=== PATIENT | female | born 1960 | race American Indian/Alaskan Native ===

== ENCOUNTER 2018-12-23 13:56 | Outpatient (CLI) | payer MEDICARE | END 2018-12-23 13:57 | disposition home or self-care (01) | LOC: LAB 13:56 | PROVIDERS: ATTEND Specialist | DX: G45.9 Transient cerebral ischemic attack, unspecified (principal); F17.200 Nicotine dependence, unspecified, uncomplicated; E78.00 Pure hypercholesterolemia, unspecified; I10 Essential (primary) hypertension | CPT/HCPCS: 36415; 84436; 84443; 84479; 84480 ==

== ENCOUNTER 2019-05-12 13:28 | Inpatient (IN) | payer MEDICARE, OTHER ==
[2019-05-12 13:57] LABS: Basophils % (Auto) 0.6 % (0.0-1.8); Eosinophils # (Auto) 0.1 K/mm3 (0.0-0.4); Eosinophils % (Auto) 2.4 % (0.0-4.3); Hematocrit 37.1 % (30.3-42.9); Hemoglobin 12.5 gm/dl (10.1-14.3); Lymphocytes # (Auto) 2.4 K/mm3 (1.2-5.4); Lymphocytes % (Auto) 49.7 % (13.4-35.0); Mean Corpuscular HGB Conc 34 % (30-34); Mean Corpuscular Volume 87 fl (79-97); Monocytes # (Auto) 0.4 K/mm3 (0.0-0.8); Monocytes % (Auto) 8.7 % (0.0-7.3); Platelet Count 359 K/mm3 (140-440); Red Blood Count 4.26 M/mm3 (3.65-5.03); Red Cell Distribution Width 13.2 % (13.2-15.2)
--- NOTE | 2019-05-12 13:58 | Cat Scan Report ---
PROCEDURE: CT HEAD/BRAIN WO CON TECHNIQUE: Computerized tomography of the head was performed without contrast material. CT DOSE LENGTH PRODUCT: 1453.81 mGy-cm. HISTORY: neuro deficits <6hrs or sx present upon awakening COMPARISONS: CT head November 29, 2018. FINDINGS: Chronic encephalomalacia in the right frontal periventricular white matter, right frontal lobe, and b oth parietal regions. There is no evidence for acute ischemia. There is no hemorrhage. There is no midline shift. There is no hydrocephalus. There is no mass. Age appropriate mendoza-white matter attenuation is noted. There is no calvarial fracture. The temporal bones demonstrate aerated mastoid air cells. The middle ears appear unremarkable. Paranasal sinuses are unremarkable. Bilateral proptosis. Globes are otherwise unremarkable. IMPRESSION: * No acute intracranial findings. * Chronic ischemic disease. * Bilateral proptosis. This document is electronically signed by Mauri Mcginnis MD., May 12 2019 01:55:34 PM ET
[2019-05-12] MEDS ORDERED: NORMODYNE IV ONE (14:03)
[2019-05-12] MEDS ORDERED: BABY ASPIRIN PO ONE (14:03)
--- NOTE | 2019-05-12 14:05 | Emergency Department Report ---
ED Neuro Deficit HPI - General Chief Complaint: Neuro Symptoms/Deficit Stated Complaint: SOB,DIZZY Time Seen by Provider: 05/12/19 13:38 Source: patient Mode of arrival: Ambulatory Limitations: No Limitations - History of Present Illness Initial Comments: Mrs. Mcclelland is a 59-year-old female with history of CVA, hypertension, tobacco abuse, dyslipidemia who presents with abnormal speech, face "locking up". She has persistent numbness and numbness on the left side from previous CVA. However the numbness is more prominent with new decreased sensation in the facial region. Symptoms occurred last night. Symptoms then recurred this morning at 11 AM. noticed that she had trouble getting her words out. Further CVA TIA episode occurred 2014. She was admitted recently in November 2018. MRI of the brain obtained November 2018 revealed multiple chronic focal infarcts. -: Last night, This morning Location: speech, left face Presenting Symptoms: Present: Unable to Speak Clearly Place: home Severity: mild Quality: numb Improves With: time On Anticoagulants: No Context: sudden onset - Related Data Home Medications: Home Medications Medication Instructions Recorded Confirmed Last Taken Lisinopril [Zestril TAB] 5 mg PO QDAY 06/05/15 11/30/18 06/05/15 Ibuprofen [Motrin] 800 mg PO Q8HR PRN 05/12/19 05/12/19 Unknown Simvastatin 20 mg PO QHS 05/12/19 05/12/19 Unknown amLODIPine [Norvasc] 10 mg PO QDAY 05/12/19 05/12/19 Unknown Previous Rx's Medication Instructions Recorded Last Taken Type Aspirin 325 mg PO QDAY #30 tablet 06/08/15 1 Day Ago Rx ~11/29/18 Allergies/Adverse Reactions: Allergies Allergy/AdvReac Type Severity Reaction Status Date / Time No Known Allergies Allergy Verified 11/29/18 14:11 ED Review of Systems ROS: Stated complaint: SOB,DIZZY Other details as noted in HPI Comment: All other systems reviewed and negative Constitutional: denies: malaise Respiratory: denies: cough Cardiovascular: denies: chest pain ED Past Medical Hx - Past Medical History Previous Medical History?: Yes Hx Hypertension: Yes Hx CVA: Yes (x7) Hx Congestive Heart Failure: No Hx Diabetes: No Hx Asthma: No Hx COPD: No - Family History Family history: hypertension - Social History Smoking Status: Current Every Day Smoker - Medications Home Medications: Home Medications Medication Instructions Recorded Confirmed Last Taken Type Lisinopril [Zestril TAB] 5 mg PO QDAY 06/05/15 11/30/18 06/05/15 History Aspirin 325 mg PO QDAY #30 tablet 06/08/15 11/30/18 1 Day Ago Rx ~11/29/18 Ibuprofen [Motrin] 800 mg PO Q8HR PRN 05/12/19 05/12/19 Unknown History Simvastatin 20 mg PO QHS 05/12/19 05/12/19 Unknown History amLODIPine [Norvasc] 10 mg PO QDAY 05/12/19 05/12/19 Unknown History ED Neuro Physical Exam - General Limitations: No Limitations General appearance: alert, in no apparent distress, other (tearful obviously upset) Suspected Stroke: Yes - Head Head exam: Present: atraumatic, normocephalic - Eye Eye exam: Present: normal appearance - ENT ENT exam: Present: mucous membranes moist - Neck Neck exam: Present: normal inspection, full ROM - Respiratory Respiratory exam: Present: normal lung sounds bilaterally. Absent: respiratory distress, wheezes, rales, rhonchi - Cardiovascular Cardiovascular Exam: Present: regular rate, normal rhythm, normal heart sounds. Absent: systolic murmur, diastolic murmur, rubs, gallop - GI/Abdominal GI/Abdominal exam: Present: soft, normal bowel sounds. Absent: distended, tenderness, guarding, rebound - Extremities Exam Extremities exam: Present: normal inspection - Back Exam Back exam: Present: normal inspection - Neurological Exam Neurological exam: Present: alert, oriented X3 - NIHSS Assessment Interval: Baseline 1a. Level of Consciousness: alert/keenly responsive 1b. LOC Questions: answers both correctly 1c. LOC Commands: performs tasks correctly 2. Best Gaze: normal 3. Visual: no visual loss 4. Facial Palsy: normal symmetrical movement 5b. Motor Arm Right: no drift 5a. Motor Arm Left: no drift 6a. Motor Leg Left: drift 6b. Motor Leg Right: no drift 7. Limb Ataxia: absent 8. Sensory: mild/moderate sensory loss 9. Best Language: mild/moderate aphasia 10. Dysarthria: mild/moderate dysarthria 11. Extinction/Inattention: no abnormality Total Score: 4 Stroke Severity: Minor Stroke - Psychiatric Psychiatric exam: Present: normal affect, normal mood - Skin Skin exam: Present: warm, dry, intact, normal color. Absent: rash ED Course Vital Signs 05/12/19 05/12/19 13:35 14:23 Temperature 98.3 F Pulse Rate 117 H Respiratory 20 Rate Blood Pressure 202/117 [Left] O2 Sat by Pulse 100 Oximetry - Lab Data Result diagrams: 05/12/19 13:48 05/12/19 13:48 Lab Results 05/12/19 05/12/19 05/12/19 Range/Units 13:38 13:48 13:48 WBC 4.9 (4.5-11.0) K/mm3 RBC 4.26 (3.65-5.03) M/mm3 Hgb 12.5 (10.1-14.3) gm/dl Hct 37.1 (30.3-42.9) % MCV 87 (79-97) fl MCH 29 (28-32) pg MCHC 34 (30-34) % RDW 13.2 (13.2-15.2) % Plt Count 359 (140-440) K/mm3 Lymph % (Auto) 49.7 H (13.4-35.0) % [place] % (Auto) 8.7 H (0.0-7.3) % Eos % (Auto) 2.4 (0.0-4.3) % Baso % (Auto) 0.6 (0.0-1.8) % Lymph # 2.4 (1.2-5.4) K/mm3 [place] # 0.4 (0.0-0.8) K/mm3 Eos # 0.1 (0.0-0.4) K/mm3 Baso # 0.0 (0.0-0.1) K/mm3 Seg Neutrophils % 38.6 L (40.0-70.0) % Seg Neutrophils # 1.9 (1.8-7.7) K/mm3 PT 13.0 (12.2-14.9) Sec. INR 1.01 (0.87-1.13) APTT 39.0 H (24.2-36.6) Sec. Thrombin Time 15.3 (15.1-19.6) Sec. Sodium (137-145) mmol/L Potassium (3.6-5.0) mmol/L Chloride (98-107) mmol/L Carbon Dioxide (22-30) mmol/L Anion Gap mmol/L BUN (7-17) mg/dL Creatinine (0.7-1.2) mg/dL Estimated GFR ml/min BUN/Creatinine Ratio % Glucose (65-100) mg/dL POC Glucose 108 H (70-105) Calcium (8.4-10.2) mg/dL Troponin T (0.00-0.029) ng/mL 05/12/19 Range/Units 13:48 WBC (4.5-11.0) K/mm3 RBC (3.65-5.03) M/mm3 Hgb (10.1-14.3) gm/dl Hct (30.3-42.9) % MCV (79-97) fl MCH (28-32) pg MCHC (30-34) % RDW (13.2-15.2) % Plt Count (140-440) K/mm3 Lymph % (Auto) (13.4-35.0) % [place] % (Auto) (0.0-7.3) % Eos % (Auto) (0.0-4.3) % Baso % (Auto) (0.0-1.8) % Lymph # (1.2-5.4) K/mm3 [place] # (0.0-0.8) K/mm3 Eos # (0.0-0.4) K/mm3 Baso # (0.0-0.1) K/mm3 Seg Neutrophils % (40.0-70.0) % Seg Neutrophils # (1.8-7.7) K/mm3 PT (12.2-14.9) Sec. INR (0.87-1.13) APTT (24.2-36.6) Sec. Thrombin Time (15.1-19.6) Sec. Sodium 141 (137-145) mmol/L Potassium 3.9 (3.6-5.0) mmol/L Chloride 104.4 (98-107) mmol/L Carbon Dioxide 23 (22-30) mmol/L Anion Gap 18 mmol/L BUN 10 (7-17) mg/dL Creatinine 0.7 (0.7-1.2) mg/dL Estimated GFR > 60 ml/min BUN/Creatinine Ratio 14 % Glucose 111 H (65-100) mg/dL POC Glucose (70-105) Calcium 9.2 (8.4-10.2) mg/dL Troponin T < 0.010 (0.00-0.029) ng/mL 05/12/19 14:16 EKG obtained 1412 Normal sinus rhythm rate 90 beats a minute normal axis prolonged QT interval no ST elevation - Radiology Data Radiology results: report reviewed, image reviewed interpreted by me: AP portable chest: No acute process according to my radiology interpretation CT head without acute process according to radiology report - Medical Decision Making Mrs. Mcclelland presents with left sided weakness, aphasia and left sided numbness. Due to improving symptoms, I and teleneurologist agree that TPA nor advanced imaging are indicated at this time. Dr. Schilling, teleneurologist, recommended admission for further evaluation. ASA provided in ED Labetalol IV given to manage elevated blood pressure Dr. Schilling recommended IV Keppra for possible focal seizure of the face. - Thrombolytic Inclusion/Exclusion Thrombolytic Contraindications: Rapidily Improving s/s Critical care attestation.: If time is entered above; I have spent that time in minutes in the direct care of this critically ill patient, excluding procedure time. ED Disposition Clinical Impression: CVA (cerebral infarction), Tobacco abuse, TIA (transient ischemic attack), Expressive aphasia, Focal seizure Disposition: DC-09 OP ADMIT IP TO THIS HOSP Is pt being admited?: Yes Does the pt Need Aspirin: No Condition: Stable Instructions: Hypertension (ED)
[2019-05-12 14:09] LABS: BUN/Creatinine Ratio 14; Blood Urea Nitrogen 10 mg/dL (7-17); Calcium 9.2 mg/dL (8.4-10.2); Hemolysis Index 3
[2019-05-12 14:29] LABS: INR 1.01 (0.87-1.13)
[2019-05-12 14:30] LABS: Thrombin Time 15.3 Sec. (15.1-19.6)
[2019-05-12] MEDS ORDERED: KEPPRA 1,000 MG/NS 0.75% 100ML 1,000 MG/100 ML BAG IV ONE (14:32)
--- NOTE | 2019-05-12 14:47 | Emergency Department Report ---
ED Neuro Deficit HPI - General Chief Complaint: Neuro Symptoms/Deficit Stated Complaint: SOB,DIZZY Time Seen by Provider: 05/12/19 13:38 Source: patient Mode of arrival: Ambulatory Limitations: No Limitations - History of Present Illness Initial Comments: [facility] Impression: stroke v seizure. Admits to left facial numbness, which is new. She is also concerned with left facial spasms. Suspect the spasms are m/l focal seizures. If she indeed has new left facial weakness since yesterday, this could also be a new stroke Not a tpa candidate due to: out of therapeutic window, mild non disabling symptoms Does not meet LVO screening criteria (no aphasia, neglect, gaze deviation, dense hemiparesis, visual field deficits on exam); therefore, advanced imaging not recommended. Differential Diagnosis: 1. Cardioembolic stroke 2. Small vessel disease/lacune 3. Thromboembolic, [id number] mechanism 4. Hypercoagulable state-related infarct 5. Transient ischemic attack 6. Thrombotic mechanism, large artery disease Comments: [facility] contacted: [phone] [facility] at bedside: [phone] Recommendations: Activate Stroke protocol admission/order set Keppra 1g iv now Stroke/telemetry floor Neuro checks Bedside swallow eval Dvt prophylaxis IV fluids, normal saline ASA if no contraindications Head of bed below 30 degrees Euglycemia and avoid hyperthermia (prn acetaminophen) inpatient neurology consultation Inpatient stroke evaluation as per Neurology/ Internal Medicine Discussed with ED MD CC left facial numbness, left facial twtching History of Present Illness Patient is a 59 year old woman who comes to the hospital for new left facial numbness and left facial twitching. This has been on going since yesterday in the morning. Today she woke up with the same symptoms and decided to come to the hospital. History of previous strokes, last one in November 2018. She ahs re sidual left sided numbness and mild weakness Diagnostic: Ct head without contrast: bi hemispheric- encephalomalacia- cortical- parietal Exam: NIHSS score: 1 1A: Level of Consciousness - Alert; keenly responsive 1B: Ask Month and Age - Both Questions Right 1C: 'Blink Eyes' & 'Squeeze Hands' - Performs Both Tasks 2: Test Horizontal Extraocular Movements - Normal 3: Test Visual [place] - No Visual Loss 4: Test Facial Palsy - Normal symmetry 5A: Test Left Arm Motor Drift - No Drift for 10 Seconds 5B: Test Right Arm Motor Drift - No Drift for 10 Seconds 6A: Test Left Leg Motor Drift - No Drift for 5 Seconds 6B: Test Right Leg Motor Drift - No Drift for 5 Seconds 7: Test Limb Ataxia - No Ataxia 8: Test Sensation - Mild-Moderate Loss: Less Sharp/More Dull 9: Test Language/Aphasia - Normal; No aphasia 10: Test Dysarthria - Normal 11: Test Extinction/Inattention - No abnormality Medical Decision Making: - Extensive number of diagnosis or management options are considered above. - Extensive amount of complex data reviewed. - High risk of complication and/or morbidity or mortality are associated with differential diagnostic considerations above. - There may be Uncertain outcome and increased probability of prolonged functional impairment or high probability of severe prolonged functional impairment associated with some of these differential diagnosis. Medical Data Reviewed: 1.Data reviewed include clinical labs, radiology, Medical Tests; 2.Tests results discussed w/performing or interpreting physician; 3.Obtaining/reviewing old medical records; 4.Obtaining case history from another source; 5.Independent review of image, tracing or specimen. Patient was informed the Neurology Consult would happen via telehealth (remote video) and consented to receiving care in this manner. Location: speech, left face Place: home Severity: mild Quality: numb Improves With: time On Anticoagulants: No - Related Data Home Medications: Home Medications Medication Instructions Recorded Confirmed Last Taken Lisinopril [Zestril TAB] 20 mg PO QDAY 06/05/15 05/12/19 06/05/15 Ibuprofen [Motrin] 800 mg PO Q8HR PRN 05/12/19 05/12/19 Unknown Simvastatin 20 mg PO QHS 05/12/19 05/12/19 Unknown amLODIPine [Norvasc] 10 mg PO QDAY 05/12/19 05/12/19 Unknown Previous Rx's Medication Instructions Recorded Last Taken Type Aspirin 325 mg PO QDAY #30 tablet 06/08/15 1 Day Ago Rx ~11/29/18 Allergies/Adverse Reactions: Allergies Allergy/AdvReac Type Severity Reaction Status Date / Time No Known Allergies Allergy Verified 11/29/18 14:11 ED Review of Systems ROS: Stated complaint: SOB,DIZZY Other details as noted in HPI Constitutional: denies: malaise Respiratory: denies: cough Cardiovascular: denies: chest pain ED Past Medical Hx - Past Medical History Previous Medical History?: Yes Hx Hypertension: Yes Hx CVA: Yes (x7) Hx Congestive Heart Failure: No Hx Diabetes: No Hx Asthma: No Hx COPD: No - Social History Smoking Status: Current Every Day Smoker - Medications Home Medications: Home Medications Medication Instructions Recorded Confirmed Last Taken Type Lisinopril [Zestril TAB] 20 mg PO QDAY 06/05/15 05/12/19 06/05/15 History Aspirin 325 mg PO QDAY #30 tablet 06/08/15 05/12/19 1 Day Ago Rx ~11/29/18 Ibuprofen [Motrin] 800 mg PO Q8HR PRN 05/12/19 05/12/19 Unknown History Simvastatin 20 mg PO QHS 05/12/19 05/12/19 Unknown History amLODIPine [Norvasc] 10 mg PO QDAY 05/12/19 05/12/19 Unknown History ED Neuro Physical Exam - General Limitations: No Limitations General appearance: alert, in no apparent distress, other (tearful obviously upset) Suspected Stroke: Yes - NIHSS Assessment Interval: Baseline 1a. Level of Consciousness: alert/keenly responsive 1b. LOC Questions: answers both correctly 1c. LOC Commands: performs tasks correctly 2. Best Gaze: normal 3. Visual: no visual loss 4. Facial Palsy: normal symmetrical movement 5b. Motor Arm Right: no drift 5a. Motor Arm Left: no drift 6a. Motor Leg Left: no drift 6b. Motor Leg Right: no drift 7. Limb Ataxia: absent 8. Sensory: mild/moderate sensory loss 9. Best Language: no aphasia 10. Dysarthria: normal 11. Extinction/Inattention: no abnormality Total Score: 1 Stroke Severity: Minor Stroke ED Course Vital Signs 05/12/19 05/12/19 13:35 14:23 Temperature 98.3 F Pulse Rate 117 H Respiratory 20 Rate Blood Pressure 202/117 [Left] O2 Sat by Pulse 100 Oximetry - Lab Data Result diagrams: 05/12/19 13:48 05/12/19 13:48 Lab Results 05/12/19 05/12/19 05/12/19 Range/Units 13:38 13:48 13:48 WBC 4.9 (4.5-11.0) K/mm3 RBC 4.26 (3.65-5.03) M/mm3 Hgb 12.5 (10.1-14.3) gm/dl Hct 37.1 (30.3-42.9) % MCV 87 (79-97) fl MCH 29 (28-32) pg MCHC 34 (30-34) % RDW 13.2 (13.2-15.2) % Plt Count 359 (140-440) K/mm3 Lymph % (Auto) 49.7 H (13.4-35.0) % [place] % (Auto) 8.7 H (0.0-7.3) % Eos % (Auto) 2.4 (0.0-4.3) % Baso % (Auto) 0.6 (0.0-1.8) % Lymph # 2.4 (1.2-5.4) K/mm3 [place] # 0.4 (0.0-0.8) K/mm3 Eos # 0.1 (0.0-0.4) K/mm3 Baso # 0.0 (0.0-0.1) K/mm3 Seg Neutrophils % 38.6 L (40.0-70.0) % Seg Neutrophils # 1.9 (1.8-7.7) K/mm3 PT 13.0 (12.2-14.9) Sec. INR 1.01 (0.87-1.13) APTT 39.0 H (24.2-36.6) Sec. Thrombin Time 15.3 (15.1-19.6) Sec. Sodium (137-145) mmol/L Potassium (3.6-5.0) mmol/L Chloride (98-107) mmol/L Carbon Dioxide (22-30) mmol/L Anion Gap mmol/L BUN (7-17) mg/dL Creatinine (0.7-1.2) mg/dL Estimated GFR ml/min BUN/Creatinine Ratio % Glucose (65-100) mg/dL POC Glucose 108 H (70-105) Calcium (8.4-10.2) mg/dL Troponin T (0.00-0.029) ng/mL 05/12/19 Range/Units 13:48 WBC (4.5-11.0) K/mm3 RBC (3.65-5.03) M/mm3 Hgb (10.1-14.3) gm/dl Hct (30.3-42.9) % MCV (79-97) fl MCH (28-32) pg MCHC (30-34) % RDW (13.2-15.2) % Plt Count (140-440) K/mm3 Lymph % (Auto) (13.4-35.0) % [place] % (Auto) (0.0-7.3) % Eos % (Auto) (0.0-4.3) % Baso % (Auto) (0.0-1.8) % Lymph # (1.2-5.4) K/mm3 [place] # (0.0-0.8) K/mm3 Eos # (0.0-0.4) K/mm3 Baso # (0.0-0.1) K/mm3 Seg Neutrophils % (40.0-70.0) % Seg Neutrophils # (1.8-7.7) K/mm3 PT (12.2-14.9) Sec. INR (0.87-1.13) APTT (24.2-36.6) Sec. Thrombin Time (15.1-19.6) Sec. Sodium 141 (137-145) mmol/L Potassium 3.9 (3.6-5.0) mmol/L Chloride 104.4 (98-107) mmol/L Carbon Dioxide 23 (22-30) mmol/L Anion Gap 18 mmol/L BUN 10 (7-17) mg/dL Creatinine 0.7 (0.7-1.2) mg/dL Estimated GFR > 60 ml/min BUN/Creatinine Ratio 14 % Glucose 111 H (65-100) mg/dL POC Glucose (70-105) Calcium 9.2 (8.4-10.2) mg/dL Troponin T < 0.010 (0.00-0.029) ng/mL Critical care attestation.: If time is entered above; I have spent that time in minutes in the direct care of this critically ill patient, excluding procedure time. ED Disposition Clinical Impression: CVA (cerebral infarction) Disposition: DC-09 OP ADMIT IP TO THIS HOSP Is pt being admited?: Yes Condition: Stable Instructions: Hypertension (ED)
--- NOTE | 2019-05-12 15:13 | XRay Report ---
AP CHEST: HISTORY: Dyspnea AP view of the chest demonstrates a normal mediastinal and cardiac contour with clear lungs and normal bony and soft tissue structures. IMPRESSION: Unremarkable AP chest.
[2019-05-12] MEDS ORDERED: IBUPROFEN PO PRN (21:14)
--- NOTE | 2019-05-12 21:14 | History and Physical Report ---
History of Present Illness Date of examination: 05/12/19 Date of admission: 05/12/19 14:06 Medications and Allergies Allergies Allergy/AdvReac Type Severity Reaction Status Date / Time No Known Allergies Allergy Verified 11/29/18 14:11 Home Medications Medication Instructions Recorded Confirmed Last Taken Type Lisinopril [Zestril TAB] 20 mg PO QDAY 06/05/15 05/12/19 06/05/15 History Aspirin 325 mg PO QDAY #30 tablet 06/08/15 05/12/19 1 Day Ago Rx ~11/29/18 Ibuprofen [Motrin] 800 mg PO Q8HR PRN 05/12/19 05/12/19 Unknown History Simvastatin 20 mg PO QHS 05/12/19 05/12/19 Unknown History amLODIPine [Norvasc] 10 mg PO QDAY 05/12/19 05/12/19 Unknown History Exam - Constitutional Vitals: Temp Pulse Resp BP Pulse Ox 98.3 F 92 H 17 164/90 100 05/12/19 20:12 05/12/19 20:12 05/12/19 20:12 05/12/19 20:12 05/12/19 20:12 Results - Labs CBC & Chem 7: 05/12/19 13:48 05/12/19 13:48 Labs: Laboratory Last Values WBC 4.9 K/mm3 (4.5-11.0) 05/12/19 13:48 RBC 4.26 M/mm3 (3.65-5.03) 05/12/19 13:48 Hgb 12.5 gm/dl (10.1-14.3) 05/12/19 13:48 Hct 37.1 % (30.3-42.9) 05/12/19 13:48 MCV 87 fl (79-97) 05/12/19 13:48 MCH 29 pg (28-32) 05/12/19 13:48 MCHC 34 % (30-34) 05/12/19 13:48 RDW 13.2 % (13.2-15.2) 05/12/19 13:48 Plt Count 359 K/mm3 (140-440) 05/12/19 13:48 Lymph % (Auto) 49.7 % (13.4-35.0) H 05/12/19 13:48 [place] % (Auto) 8.7 % (0.0-7.3) H 05/12/19 13:48 Eos % (Auto) 2.4 % (0.0-4.3) 05/12/19 13:48 Baso % (Auto) 0.6 % (0.0-1.8) 05/12/19 13:48 Lymph # 2.4 K/mm3 (1.2-5.4) 05/12/19 13:48 [place] # 0.4 K/mm3 (0.0-0.8) 05/12/19 13:48 Eos # 0.1 K/mm3 (0.0-0.4) 05/12/19 13:48 Baso # 0.0 K/mm3 (0.0-0.1) 05/12/19 13:48 Seg Neutrophils % 38.6 % (40.0-70.0) L 05/12/19 13:48 Seg Neutrophils # 1.9 K/mm3 (1.8-7.7) 05/12/19 13:48 PT 13.0 Sec. (12.2-14.9) 05/12/19 13:48 INR 1.01 (0.87-1.13) 05/12/19 13:48 APTT 39.0 Sec. (24.2-36.6) H 05/12/19 13:48 15.3 Sec. (15.1-19.6) 05/12/19 13:48 Sodium 141 mmol/L (137-145) 05/12/19 13:48 Potassium 3.9 mmol/L (3.6-5.0) 05/12/19 13:48 Chloride 104.4 mmol/L (98-107) 05/12/19 13:48 Carbon Dioxide 23 mmol/L (22-30) 05/12/19 13:48 18 mmol/L 05/12/19 13:48 BUN 10 mg/dL (7-17) 05/12/19 13:48 0.7 mg/dL (0.7-1.2) 05/12/19 13:48 Estimated GFR > 60 ml/min 05/12/19 13:48 14 % 05/12/19 13:48 Glucose 111 mg/dL (65-100) H 05/12/19 13:48 POC Glucose 108 (70-105) H 05/12/19 13:38 Calcium 9.2 mg/dL (8.4-10.2) 05/12/19 13:48 < 0.010 ng/mL (0.00-0.029) 05/12/19 13:48
[2019-05-12] MEDS ORDERED: TYLENOL PO PRN (21:18)
[2019-05-12] MEDS ORDERED: ZOFRAN IV PRN (21:18)
[2019-05-12] MEDS ORDERED: SODIUM CHLORIDE FLUSH SYRINGE 10 ML IV PRN (21:18)
[2019-05-12] MEDS ORDERED: DILAUDID IV PRN (21:19)
[2019-05-12] MEDS ORDERED: SODIUM CHLORIDE FLUSH SYRINGE 10 ML INJ PRN (21:21)
[2019-05-12] MEDS ORDERED: NACL 0.9% 1000 ML 1,000 ML IV SCH (22:00)
[2019-05-12] MEDS ORDERED: NON-FORMULARY (Simvastatin [Simvastatin] 20 MG) PO SCH (22:00)
[2019-05-12] MEDS: KEPPRA 750 MG in D5W 100 ML IV SCH (22:36)
[2019-05-12] MEDS: ASPIRIN PO SCH (22:37)
[2019-05-12] MEDS: PEPCID PO SCH (22:37)
[2019-05-12] MEDS: ZESTRIL PO SCH (22:37)
[2019-05-12] MEDS: NORVASC PO SCH (22:38)
[2019-05-12] MEDS: LOVENOX SUB-Q SCH (22:39)
[2019-05-12] MEDS: SODIUM CHLORIDE FLUSH SYRINGE 10 ML IV SCH (22:40)
--- NOTE | 2019-05-13 06:24 | Event Note ---
Date: 05/12/19 See H/p in reports CVA Seizure disorder HTN
[2019-05-13 06:35] LABS: Basophils % (Auto) 0.6 % (0.0-1.8); Eosinophils # (Auto) 0.1 K/mm3 (0.0-0.4); Hematocrit 33.7 % (30.3-42.9); Hemoglobin 11.3 gm/dl (10.1-14.3); Lymphocytes # (Auto) 2.4 K/mm3 (1.2-5.4); Lymphocytes % (Auto) 46.6 % (13.4-35.0); Mean Corpuscular HGB Conc 34 % (30-34); Mean Corpuscular Volume 87 fl (79-97); Monocytes # (Auto) 0.5 K/mm3 (0.0-0.8); Monocytes % (Auto) 8.8 % (0.0-7.3); Platelet Count 335 K/mm3 (140-440); Red Blood Count 3.87 M/mm3 (3.65-5.03)
[2019-05-13 06:59] LABS: Alanine Aminotransferase 14 units/L (7-56); Albumin 4.1 g/dL (3.9-5); BUN/Creatinine Ratio 11; Blood Urea Nitrogen 8 mg/dL (7-17); Calcium 8.7 mg/dL (8.4-10.2); Chol/HDL Ratio 4.39 %; HDL Cholesterol 33 mg/dL (40-59); Hemolysis Index 4; LDL Cholesterol,Direct 105 mg/dL (50-130)
--- NOTE | 2019-05-13 07:02 | History and Physical Report ---
CHIEF COMPLAINT: 1. Left-sided weakness. 2. Facial spasms. HISTORY OF PRESENT ILLNESS: A 59-year-old -[place] female with history of prior cerebrovascular accident, hypertension, tobacco abuse and dyslipidemia, presents to the Emergency Room with abnormal speech and dysarthria and facial spasms and weakness on the left side. In the ER, the patient was having facial spasms and difficulty speaking. Has some weakness on the left side. The patient had a prior CVA with some residual left-sided weakness. She was admitted recently in 11/2018 for possible TIA. PAST MEDICAL HISTORY: Significant for CVA, hypertension, hyperlipidemia and arthritis. FAMILY HISTORY: Hypertension. SOCIAL HISTORY: Smokes about half a pack a day. PAST SURGICAL HISTORY: Not available. CURRENT MEDICATIONS: Lisinopril 5 mg once a day, simvastatin 20 mg p.o. at bedtime, amlodipine 10 mg p.o. daily. REVIEW OF SYSTEMS: Significant for left facial spasms and left-sided weakness. Otherwise, review of systems negative. PHYSICAL EXAMINATION: GENERAL: Young elderly female, cooperative during examination. VITAL SIGNS: Blood pressure is 164/90, temperature is 98.2, pulse is 92, respirations are 18. HEENT: Unremarkable. Left facial spasms during my examination. NECK: Supple, no lymphadenopathy, no thyromegaly. LUNGS: Clear to auscultation and percussion. Good air entry. CARDIOVASCULAR: S1, S2 heard. No gallop, no murmur, no rub. Apical impulse is left fifth intercostal space and midclavicular line. ABDOMEN: Soft and benign. No hepatosplenomegaly. No guarding, no rigidity. Hernial orifices are normal. EXTREMITIES: Good pedal pulses. No pedal edema. 3/5 power in left upper extremity and left lower extremity 3+/5 power. NEUROLOGIC: Otherwise alert and oriented x 4, nonfocal exam. SKIN: Normal. LABORATORY DATA: CBC is normal. Electrolytes are normal. Glucose is 111, slightly high. DIAGNOSTIC DATA: A CT of the head, no acute intracranial findings, chronic ischemic disease, bilateral proptosis. EKG, sinus rhythm, heart rate of 90 per minute, no acute ST-T wave changes. ASSESSMENT AND PLAN: 1. Acute cerebrovascular accident. The patient had multiple cerebrovascular accidents in the past. The patient was having facial spasms during the examination. Possible seizure disorder and postictal weakness. The patient started on IV Keppra. CVA workup was initiated. 2. Seizure disorder. The patient to be continued on IV Keppra and transitioned to p.o. Keppra. 3. Hypertension. Continue antihypertensives. 4. Hyperlipidemia. Continue statins. 5. Nicotine dependence. Nicoderm patch initiated. 6. Deep venous thrombosis prophylaxis. Lovenox initiated. In summary, the patient has possible acute CVA, seizure disorder, hypertension, hyperlipidemia. The patient to be on CVA protocol. The patient to get MRI, MRA, carotid duplex scan, and echocardiogram. Also, neuro consult. The patient to be transitioned to p.o. Keppra. JOB# [id number] SADIA/PORTILLO LIGHT
[2019-05-13] MEDS ORDERED: ASPIRIN PO SCH (10:00)
[2019-05-13] MEDS: HABITROL TD SCH (10:19)
[2019-05-13] MEDS: ZESTRIL PO SCH (10:20)
[2019-05-13] MEDS: PEPCID PO SCH ×2 (10:20→21:21)
[2019-05-13] MEDS: ASPIRIN PO SCH (10:20)
[2019-05-13] MEDS: SODIUM CHLORIDE FLUSH SYRINGE 10 ML IV SCH (10:21)
[2019-05-13] MEDS: NORVASC PO SCH (10:21)
[2019-05-13] MEDS: KEPPRA 750 MG in D5W 100 ML IV SCH (10:31)
--- NOTE | 2019-05-13 12:49 | Magnetic Resonance Report ---
MRA of brain: History: Stroke. Findings: [place] vessels are widely patent. No evidence of stenosis occlusion dissection or aneurysm. Codominant vertebral arteries. Normal posterior cerebral arteries and posterior communicating arteries. Impression: Essentially negative MR of brain
--- NOTE | 2019-05-13 12:52 | Magnetic Resonance Report ---
MRI of brain: Compared to 12/01/18. History: Stroke. Findings: No evidence of restricted diffusion. Chronic infarct are identified at right posterior frontal lobe right parietal lobe left parietal lobe and right anterior basal ganglia without significant interval change. No evidence of acute ischemia or hemorrhage. Normal brainstem and cerebellum. No extra-axial fluid collection Impression: Multiple areas of chronic ischemia. No acute ischemia or hemorrhage.
--- NOTE | 2019-05-13 12:56 | Progress Note ---
Assessment and Plan Assessment and plan: --Acute CVA; not a candidate for TPA, stroke protocol Neuro workup : CT head without contrast; no acute intracranial abnormality noted, chronic ischemic disease bilateral proptosis MRI brain; previous of chronic ischemia but no acute abnormality noted MRA brain; normal study Carotid Doppler; Echocardiogram; Chest x-ray; normal study so far so far Physical therapy, occupational therapy, rehabilitation Follow neurology evaluation --Seizure disorder; seizure precautions IV Ativan as needed, continue Keppra Follow neurology evaluation and recommendations, EEG Advised the patient not to drive --Hypertension; moderate control Continue current antihypertensives and when necessary hydralazine --Dyslipidemia; statin, low cholesterol diet --DVT prophylaxis; Lovenox Physical therapy occupational therapy rehabilitation Monitor the patient closely and adjust the management as needed History Interval history: Patient seen and examined medical records reviewed The patient was admitted with altered level of consciousness and seizures activity Today patient feels better no new episodes of seizure Neuro workup is in progress Multiple family members at the bedside Vital signs noted Hospitalist Physical - Constitutional Vitals: Temp Pulse Resp BP Pulse Ox 98.5 F 83 16 148/82 99 05/13/19 08:00 05/13/19 08:00 05/13/19 08:00 05/13/19 08:00 05/13/19 08:00 General appearance: Present: no acute distress, well-nourished - EENT Eyes: Present: PERRL, EOM intact - Neck Neck: Present: supple, normal ROM - Respiratory Respiratory effort: normal Respiratory: bilateral: diminished, negative: rales, rhonchi, wheezing - Cardiovascular Rhythm: regular Heart Sounds: Present: S1 & S2 - Extremities Extremities: no ischemia, No edema - Abdominal General gastrointestinal: soft, non-tender, non-distended, normal bowel sounds - Integumentary Integumentary: Present: clear, warm - Psychiatric Psychiatric: appropriate mood/affect, cooperative - Neurologic Neurologic: moves all extremities Results - Labs CBC & Chem 7: 05/13/19 05:38 05/13/19 05:38 Labs: Laboratory Last Values WBC 5.2 K/mm3 (4.5-11.0) 05/13/19 05:38 RBC 3.87 M/mm3 (3.65-5.03) 05/13/19 05:38 Hgb 11.3 gm/dl (10.1-14.3) 05/13/19 05:38 Hct 33.7 % (30.3-42.9) 05/13/19 05:38 MCV 87 fl (79-97) 05/13/19 05:38 MCH 29 pg (28-32) 05/13/19 05:38 MCHC 34 % (30-34) 05/13/19 05:38 RDW 13.0 % (13.2-15.2) L 05/13/19 05:38 Plt Count 335 K/mm3 (140-440) 05/13/19 05:38 Lymph % (Auto) 46.6 % (13.4-35.0) H 05/13/19 05:38 [place] % (Auto) 8.8 % (0.0-7.3) H 05/13/19 05:38 Eos % (Auto) 2.0 % (0.0-4.3) 05/13/19 05:38 Baso % (Auto) 0.6 % (0.0-1.8) 05/13/19 05:38 Lymph # 2.4 K/mm3 (1.2-5.4) 05/13/19 05:38 [place] # 0.5 K/mm3 (0.0-0.8) 05/13/19 05:38 Eos # 0.1 K/mm3 (0.0-0.4) 05/13/19 05:38 Baso # 0.0 K/mm3 (0.0-0.1) 05/13/19 05:38 Seg Neutrophils % 42.0 % (40.0-70.0) 05/13/19 05:38 Seg Neutrophils # 2.2 K/mm3 (1.8-7.7) 05/13/19 05:38 PT 13.0 Sec. (12.2-14.9) 05/12/19 13:48 INR 1.01 (0.87-1.13) 05/12/19 13:48 APTT 39.0 Sec. (24.2-36.6) H 05/12/19 13:48 15.3 Sec. (15.1-19.6) 05/12/19 13:48 Sodium 142 mmol/L (137-145) 05/13/19 05:38 Potassium 4.1 mmol/L (3.6-5.0) 05/13/19 05:38 Chloride 106.0 mmol/L (98-107) 05/13/19 05:38 Carbon Dioxide 22 mmol/L (22-30) 05/13/19 05:38 18 mmol/L 05/13/19 05:38 BUN 8 mg/dL (7-17) 05/13/19 05:38 0.7 mg/dL (0.7-1.2) 05/13/19 05:38 Estimated GFR > 60 ml/min 05/13/19 05:38 11 % 05/13/19 05:38 Glucose 101 mg/dL (65-100) H 05/13/19 05:38 POC Glucose 108 (70-105) H 05/12/19 13:38 5.0 % (4-6) 05/12/19 13:48 Calcium 8.7 mg/dL (8.4-10.2) 05/13/19 05:38 0.80 mg/dL (0.1-1.2) 05/13/19 05:38 AST 15 units/L (5-40) 05/13/19 05:38 ALT 14 units/L (7-56) 05/13/19 05:38 67 units/L (35-129) 05/13/19 05:38 < 0.010 ng/mL (0.00-0.029) 05/12/19 13:48 6.8 g/dL (6.3-8.2) 05/13/19 05:38 4.1 g/dL (3.9-5) 05/13/19 05:38 1.5 % 05/13/19 05:38 Triglycerides 107 mg/dL (2-149) 05/13/19 05:38 Cholesterol 145 mg/dL (50-199) 05/13/19 05:38 105 mg/dL (50-130) 05/13/19 05:38 33 mg/dL (40-59) L 05/13/19 05:38 4.39 % 05/13/19 05:38 Active Medications - Current Medications Current Medications: Generic Name Dose Route Start Last Admin Trade Name Freq PRN Reason Stop Dose Admin Acetaminophen 650 mg 05/12/19 21:18 Tylenol PO Q4H PRN Pain MILD(1-3)/Fever >100.5/LY Amlodipine Besylate 10 mg 05/12/19 22:00 05/13/19 10:21 Norvasc PO 10 mg QDAY SAY Administration Aspirin 325 mg 05/12/19 22:00 05/13/19 10:20 Aspirin PO 325 mg QDAY SAY Administration Atorvastatin Calcium 40 mg 05/12/19 22:00 05/12/19 22:39 Lipitor PO 40 mg QHS SAY Administration Enoxaparin Sodium 40 mg 05/12/19 22:00 05/12/19 22:39 Lovenox SUB-Q 40 mg QDAY@2200 SAY Administration Famotidine 20 mg 05/12/19 22:00 05/13/19 10:20 Pepcid PO 20 mg BID SAY Administration Hydromorphone HCl 0.5 mg 05/12/19 21:19 Dilaudid IV Q3H PRN Pain , Severe (7-10) Levetiracetam 750 mg/ Dextrose 107.5 mls @ 400 mls/hr 05/12/19 22:00 05/13/19 10:31 IV 400 mls/hr Q12HR SAY Administration Ibuprofen 800 mg 05/12/19 21:14 Ibuprofen PO Q8H PRN Pain, Moderate (4-6) Lisinopril 20 mg 05/12/19 22:00 05/13/19 10:20 Zestril PO 20 mg QDAY SAY Administration Nicotine 14 mg 05/13/19 10:00 05/13/19 10:19 Habitrol TD Not Given QDAY SAY Ondansetron HCl 4 mg 05/12/19 21:18 Zofran IV Q8H PRN Nausea And Vomiting Sodium Chloride 10 ml 05/12/19 22:00 05/13/19 10:21 Sodium Chloride Flush Syringe 10 Ml IV 10 ml BID SAY Administration Sodium Chloride 10 ml 05/12/19 21:18 Sodium Chloride Flush Syringe 10 Ml IV PRN PRN LINE FLUSH Nutrition/Malnutrition Assess - Dietary Evaluation Nutrition/Malnutrition Findings: Nutrition Notes Start: 05/13/19 09:36 Freq: Status: Active Protocol: Document 05/13/19 09:36 LP (Rec: 05/13/19 09:37 LP [email or web address]) Nutrition Notes 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 Pt denies need for diet education. Nutrition Intervention Revisit per MD consult or patient Sign Off request:
--- NOTE | 2019-05-13 18:14 | Progress Note ---
Assessment and Plan This is a 59 YO F with seizure post stroke. Recommend: EEG MRI reviewed AGree with Keppra, will switch to PO NO driving x 6 months, discussed with pt and COntinue care for all medical issues Subjective Date of service: 05/13/19 Interval history: Pt seen by teleneuro. No further seizures. Tolerating Keppra. Objective - Vital Sign Vital Signs - 12hr 05/13/19 05/13/19 05/13/19 08:00 12:32 14:04 Temperature 98.5 F 98.4 F Pulse Rate 83 89 Respiratory 16 16 Rate Blood Pressure 148/82 171/81 O2 Sat by Pulse 99 99 97 Oximetry 05/13/19 16:43 Temperature 98.2 F Pulse Rate 78 Respiratory 16 Rate Blood Pressure 132/76 O2 Sat by Pulse 98 Oximetry - General Apperance Constitutional: comfortable - EENT EENT: PERRL, mucous membranes moist - Respiratory Respiratory: lungs clear - Cardiovascular Cardiovascular: regular rate Extremities: no peripheral edema bilat - Gastrointestinal Gastrointestinal: normoactive bowel sounds - Neurologic Cranial nerve examination: PERRL, EOMI, V1/V2/V3 grossly intact, face symmetric, tongue midline Motor examination - right side: 5/5: biceps, triceps, wrist flexion, wrist extension, production welder, hip flexors, knee extensors, dorsiflexion, toe extension (EHL), plantarflexion Motor examination - left side: 5/5: biceps, triceps, wrist flexion, wrist extension, production welder, hip flexors, knee extensors, dorsiflexion, toe extension (EHL), plantarflexion - Laboratory Findings CBC and BMP: 05/13/19 05:38 05/13/19 05:38 Abnormal Lab Findings: Abnormal Labs 05/12/19 05/12/19 05/12/19 13:38 13:48 13:48 RDW Lymph % (Auto) 49.7 H [place] % (Auto) 8.7 H Seg Neutrophils % 38.6 L APTT 39.0 H Glucose POC Glucose 108 H HDL Cholesterol 05/12/19 05/13/19 05/13/19 13:48 05:38 05:38 RDW 13.0 L Lymph % (Auto) 46.6 H [place] % (Auto) 8.8 H Seg Neutrophils % APTT Glucose 111 H 101 H POC Glucose HDL Cholesterol 33 L - Diagnostic Findings Additional findings: MR Brain nothing acute
--- NOTE | 2019-05-13 20:33 | Vascular Lab Report ---
PROCEDURE: VL CAROTID DUPLEX BILAT TECHNIQUE: Duplex Doppler ultrasound of the common, internal and external carotid arteries and the v ertebral arteries was performed bilaterally. Vicente scale imaging, velocity spectral waveform analysis, and color flow Doppler were employed. HISTORY: stroke COMPARISONS: None . Note: Measurement of carotid stenosis is based on flow velocity values that correlate with the [place] Symptomatic Carotid Endarterectomy Trial (NASCET) based stenosis criteria using the internal carotid artery diameter as the denominator for stenosis calculation. FINDINGS: RIGHT carotid artery: Velocities: ICA PSV: 85 cm/sec ICA End diastolic: 24 cm/sec CCA PSV: 104 cm/sec IC/CC ratio: 0.8 Plaque: No obvious plaque formation is identified. RIGHT vertebral artery: Antegrade systolic and diastolic flow LEFT carotid artery: Velocities: ICA PSV: 76 cm/sec ICA End diastolic: 24 cm/sec CCA PSV: 88 cm/sec IC/CC ratio: 0.9 Plaque: No obvious plaque formation is identified. LEFT vertebral artery: Antegrade systolic and diastolic flow IMPRESSION: 1. RIGHT carotid: No evidence of stenosis. 2. LEFT carotid: No evidence of stenosis. 3. Vertebral arteries: Bilaterally antegrade. This document is electronically signed by Farhat Aguiar MD., May 13 2019 08:31:48 PM ET
[2019-05-13] MEDS: LOVENOX SUB-Q SCH (21:21)
[2019-05-13] MEDS: KEPPRA PO SCH (21:21)
[2019-05-14] MEDS: SODIUM CHLORIDE FLUSH SYRINGE 10 ML IV SCH ×3 (07:05→21:47)
[2019-05-14] MEDS: KEPPRA PO SCH ×2 (09:43→21:40)
[2019-05-14] MEDS: PEPCID PO SCH ×2 (09:44→21:39)
[2019-05-14] MEDS: NORVASC PO SCH (09:44)
[2019-05-14] MEDS: ASPIRIN PO SCH (09:44)
[2019-05-14] MEDS: HABITROL TD SCH ×2 (09:44→09:45)
[2019-05-14] MEDS: ZESTRIL PO SCH (09:44)
--- NOTE | 2019-05-14 16:50 | Progress Note ---
Assessment and Plan Assessment and plan: --Acute CVA; not a candidate for TPA, stroke protocol Neuro workup : Negative, CVA ruled out CT head without contrast; no acute intracranial abnormality noted, chronic ischemic disease bilateral proptosis MRI brain; previous of chronic ischemia but no acute abnormality noted MRA brain; normal study Carotid Doppler; no evidence of stenosis Echocardiogram;EF 55-60%, mild LVH Chest x-ray; normal study so far so far Physical therapy, evaluated recommended home PT Neurology evaluated --Seizure disorder; seizure precautions Episodes of seizures IV Ativan as needed, continue Keppra Neurology evaluated, follow EEG Advised the patient not to drive --Hypertension; moderate control Continue current antihypertensives and when necessary hydralazine --Dyslipidemia; statin, low cholesterol diet --DVT prophylaxis; Lovenox Possible discharge home tomorrow with home health Patient is stable to be transferred out of daily to medical floor Increase ambulation as tolerated Plan of care is reviewed with the patient and her nurse History Interval history: When seen and examined medical records reviewed No new complaints, able to ambulate Physical therapy evaluated and recommended home PT Alert awake oriented Vital signs noted Hospitalist Physical - Constitutional Vitals: Temp Pulse Resp BP Pulse Ox 98.7 F 84 18 111/55 100 05/14/19 13:19 05/14/19 13:19 05/14/19 13:19 05/14/19 13:19 05/14/19 13:19 General appearance: Present: no acute distress, well-nourished - EENT Eyes: Present: PERRL, EOM intact - Neck Neck: Present: supple, normal ROM - Respiratory Respiratory effort: normal Respiratory: bilateral: diminished, negative: rales, rhonchi, wheezing - Cardiovascular Rhythm: regular Heart Sounds: Present: S1 & S2 - Extremities Extremities: no ischemia, No edema - Abdominal General gastrointestinal: soft, non-tender, non-distended, normal bowel sounds - Integumentary Integumentary: Present: clear, warm - Psychiatric Psychiatric: appropriate mood/affect, cooperative - Neurologic Neurologic: CNII-XII intact, moves all extremities Results - Labs CBC & Chem 7: 05/13/19 05:38 05/13/19 05:38 Labs: Laboratory Last Values WBC 5.2 K/mm3 (4.5-11.0) 05/13/19 05:38 RBC 3.87 M/mm3 (3.65-5.03) 05/13/19 05:38 Hgb 11.3 gm/dl (10.1-14.3) 05/13/19 05:38 Hct 33.7 % (30.3-42.9) 05/13/19 05:38 MCV 87 fl (79-97) 05/13/19 05:38 MCH 29 pg (28-32) 05/13/19 05:38 MCHC 34 % (30-34) 05/13/19 05:38 RDW 13.0 % (13.2-15.2) L 05/13/19 05:38 Plt Count 335 K/mm3 (140-440) 05/13/19 05:38 Lymph % (Auto) 46.6 % (13.4-35.0) H 05/13/19 05:38 [place] % (Auto) 8.8 % (0.0-7.3) H 05/13/19 05:38 Eos % (Auto) 2.0 % (0.0-4.3) 05/13/19 05:38 Baso % (Auto) 0.6 % (0.0-1.8) 05/13/19 05:38 Lymph # 2.4 K/mm3 (1.2-5.4) 05/13/19 05:38 [place] # 0.5 K/mm3 (0.0-0.8) 05/13/19 05:38 Eos # 0.1 K/mm3 (0.0-0.4) 05/13/19 05:38 Baso # 0.0 K/mm3 (0.0-0.1) 05/13/19 05:38 Seg Neutrophils % 42.0 % (40.0-70.0) 05/13/19 05:38 Seg Neutrophils # 2.2 K/mm3 (1.8-7.7) 05/13/19 05:38 PT 13.0 Sec. (12.2-14.9) 05/12/19 13:48 INR 1.01 (0.87-1.13) 05/12/19 13:48 APTT 39.0 Sec. (24.2-36.6) H 05/12/19 13:48 15.3 Sec. (15.1-19.6) 05/12/19 13:48 Sodium 142 mmol/L (137-145) 05/13/19 05:38 Potassium 4.1 mmol/L (3.6-5.0) 05/13/19 05:38 Chloride 106.0 mmol/L (98-107) 05/13/19 05:38 Carbon Dioxide 22 mmol/L (22-30) 05/13/19 05:38 18 mmol/L 05/13/19 05:38 BUN 8 mg/dL (7-17) 05/13/19 05:38 0.7 mg/dL (0.7-1.2) 05/13/19 05:38 Estimated GFR > 60 ml/min 05/13/19 05:38 11 % 05/13/19 05:38 Glucose 101 mg/dL (65-100) H 05/13/19 05:38 POC Glucose 108 (70-105) H 05/12/19 13:38 5.0 % (4-6) 05/12/19 13:48 Calcium 8.7 mg/dL (8.4-10.2) 05/13/19 05:38 0.80 mg/dL (0.1-1.2) 05/13/19 05:38 AST 15 units/L (5-40) 05/13/19 05:38 ALT 14 units/L (7-56) 05/13/19 05:38 67 units/L (35-129) 05/13/19 05:38 < 0.010 ng/mL (0.00-0.029) 05/12/19 13:48 6.8 g/dL (6.3-8.2) 05/13/19 05:38 4.1 g/dL (3.9-5) 05/13/19 05:38 1.5 % 05/13/19 05:38 Triglycerides 107 mg/dL (2-149) 05/13/19 05:38 Cholesterol 145 mg/dL (50-199) 05/13/19 05:38 105 mg/dL (50-130) 05/13/19 05:38 33 mg/dL (40-59) L 05/13/19 05:38 4.39 % 05/13/19 05:38 Active Medications - Current Medications Current Medications: Generic Name Dose Route Start Last Admin Trade Name Freq PRN Reason Stop Dose Admin Acetaminophen 650 mg 05/12/19 21:18 Tylenol PO Q4H PRN Pain MILD(1-3)/Fever >100.5/LY Amlodipine Besylate 10 mg 05/12/19 22:00 05/14/19 09:44 Norvasc PO 10 mg QDAY SAY Administration Aspirin 325 mg 05/12/19 22:00 05/14/19 09:44 Aspirin PO 325 mg QDAY SAY Administration Atorvastatin Calcium 40 mg 05/12/19 22:00 05/13/19 22:00 Lipitor PO 40 mg QHS SAY Administration Enoxaparin Sodium 40 mg 05/12/19 22:00 05/13/19 21:21 Lovenox SUB-Q 40 mg QDAY@2200 SAY Administration Famotidine 20 mg 05/12/19 22:00 05/14/19 09:44 Pepcid PO 20 mg BID SAY Administration Hydromorphone HCl 0.5 mg 05/12/19 21:19 Dilaudid IV Q3H PRN Pain , Severe (7-10) Ibuprofen 800 mg 05/12/19 21:14 Ibuprofen PO Q8H PRN Pain, Moderate (4-6) Levetiracetam 750 mg 05/13/19 22:00 05/14/19 09:43 Keppra PO 750 mg BID SAY Administration Lisinopril 20 mg 05/12/19 22:00 05/14/19 09:44 Zestril PO 20 mg QDAY SAY Administration Nicotine 14 mg 05/13/19 10:00 05/14/19 09:45 Habitrol TD Not Given QDAY [facility] Ondansetron HCl 4 mg 05/12/19 21:18 Zofran IV Q8H PRN Nausea And Vomiting Sodium Chloride 10 ml 05/12/19 22:00 05/14/19 09:44 Sodium Chloride Flush Syringe 10 Ml IV 10 ml BID SAY Administration Sodium Chloride 10 ml 05/12/19 21:18 Sodium Chloride Flush Syringe 10 Ml IV PRN PRN LINE FLUSH Nutrition/Malnutrition Assess - Dietary Evaluation Nutrition/Malnutrition Findings: Nutrition Notes Start: 05/13/19 09:36 Freq: Status: Active Protocol: Document 05/13/19 09:36 LP (Rec: 05/13/19 09:37 LP [id number]) Nutrition Notes 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 Pt denies need for diet education. Nutrition Intervention Revisit per MD consult or patient Sign Off request:
[2019-05-14] MEDS: LOVENOX SUB-Q SCH (21:40)
--- NOTE | 2019-05-15 08:01 | Discharge Summary ---
Providers - Providers Date of Admission: 05/12/19 14:06 Date of discharge: 05/15/19 Attending physician: ABHAY LAMAS 05/12/19 21:19 Consult to Physician [CONS] Routine Comment: Consulting Provider: MAYTE DICKEY Physician Instructions: Reason For Exam: acute CVA 05/12/19 21:21 Occupational Therapy Evaluate and Treat [CONS] Routine Comment: Reason For Exam: Neuro deficits Physical Therapy Evaluation and Treat [CONS] Routine Comment: Reason For Exam: Neuro deficits Primary care physician: NORA GIVENS Hospitalization Reason for admission: slurred speech and left-sided weakness/seizures Condition: Stable Pertinent studies: CT head without contrast; no acute intracranial abnormality noted, chronic ischemic disease bilateral proptosis MRI brain; previous of chronic ischemia but no acute abnormality noted MRA brain; normal study Carotid Doppler; no evidence of stenosis Echocardiogram;EF 55-60%, mild LVH Chest x-ray; normal study so far so far Hospital course: 59-year-old -[place] female patient with significant history of CVA hypertension and tobacco use dyslipidemia was admitted through emergency room with slurred speech and weakness in the left side and facial spasms as well as seizures Patient was not a candidate for TPA as she was outside the window for thrombolysis. The patient was admitted and had extensive neurologic evaluation which was negative, acute CVA ruled out Neuro symptoms completely resolved, possible TIA, placed on seizure precautions, managed with antiepileptic medications Nicolas, evaluated by neurology Advised not to drive for 6 months or until cleared by neurology and PMD Today patient is comfortable and ambulatory, physical therapy recommended home PT No new episodes of seizure Vital signs are stable, physical examination at discharge is unremarkable Hemodynamically and clinically stable at discharge Patient has private neurologist advised to follow up in 3-4 days EEG as outpatient if needed, Discharge diagnosis; And management --Possible Acute CVA; CVA ruled out Neuro workup : Negative, CT head without contrast; no acute intracranial abnormality noted, chronic ischemic disease bilateral proptosis MRI brain; previous of chronic ischemia but no acute abnormality noted MRA brain; normal study Carotid Doppler; no evidence of stenosis Echocardiogram;EF 55-60%, mild LVH Chest x-ray; normal study so far so far Physical therapy, evaluated recommended home PT Neurology evaluated --Possible TIA; aspirin and statin --Seizure disorder; seizure precautions No new Episodes of seizures continue Nicolas, Neurology evaluated, Follow-up neurology outpatient upon discharge Do not drive for 6 months/to be cleared by PMD/neurology --Hypertension; well controlled --Dyslipidemia; statin, low cholesterol diet --DVT prophylaxis; Lovenox Disposition; discharge home with home health Seizure Precautions, do not drive for 6 months Stable at discharge Disposition: [id number]/[place]-06 HOME [facility] Time spent for discharge: 35 min Core Measure Documentation - Palliative Care Palliative Care/ Comfort Measures: Not Applicable - Core Measures Any of the following diagnoses?: none Exam - Constitutional Vitals: Temp Pulse Resp BP Pulse Ox 98.1 F 84 18 116/75 97 05/15/19 05:11 05/15/19 05:11 05/15/19 05:11 05/15/19 05:11 05/15/19 05:11 General appearance: Present: no acute distress, well-nourished - EENT Eyes: Present: PERRL, EOM intact - Neck Neck: Present: supple, normal ROM - Respiratory Respiratory effort: normal Respiratory: negative: rales, rhonchi, wheezing - Cardiovascular Rhythm: regular Heart Sounds: Present: S1 & S2 - Extremities Extremities: no ischemia, No edema - Abdominal General gastrointestinal: Present: soft, non-tender, non-distended, normal bowel sounds - Integumentary Integumentary: Present: clear, warm - Musculoskeletal Musculoskeletal: strength equal bilaterally - Psychiatric Psychiatric: appropriate mood/affect, cooperative - Neurologic Neurologic: CNII-XII intact, moves all extremities Plan Activity: advance as tolerated, no driving until cleared by PCP, fall precautions, other (seizure precautions) Diet: low cholesterol, low salt Special Instructions: physical therapy Additional Instructions: Seizure precautions. Do not drive for 6 months, should be cleared by PMD/neurologist for driving. Advised to see your private neurologist in 3-4 days Follow up with: NORA GIVENS MD [Primary Care Provider] - 7 Days Prescriptions: Nicotine [Habitrol] 14 mg TD QDAY #30 patch levETIRAcetam [Keppra] 750 mg PO BID #60 oral.liqd
[2019-05-15] MEDS: KEPPRA PO SCH (09:37)
[2019-05-15] MEDS: ASPIRIN PO SCH (09:40)
[2019-05-15] MEDS: PEPCID PO SCH (09:40)
[2019-05-15] MEDS: HABITROL TD SCH (09:41)
[2019-05-15] MEDS: NORVASC PO SCH (09:41)
[2019-05-15 09:42] VITALS: BP 162/87
[2019-05-15] MEDS: ZESTRIL PO SCH (09:48)
[2019-05-15] MEDS: SODIUM CHLORIDE FLUSH SYRINGE 10 ML IV SCH (09:49)
== END 2019-05-15 11:30 | disposition home health service (06) | DRG 69 ==
LOC: ED 13:28 → 4A 14:06 → 3A 05-14 18:32
PROVIDERS: ADMIT Internal Medicine; ATTEND Internal Medicine
DX: G45.9 Transient cerebral ischemic attack, unspecified (principal); I69.354 Hemiplegia and hemiparesis following cerebral infarction affecting left non-dominant side; G40.909 Epilepsy, unspecified, not intractable, without status epilepticus; I10 Essential (primary) hypertension; F17.200 Nicotine dependence, unspecified, uncomplicated; E78.5 Hyperlipidemia, unspecified; Z79.82 Long term (current) use of aspirin
CPT/HCPCS: 36415; 70450; 70544; 70551; 71045; 80048; 80053; 80061; 82962; 83036; 84484; 85025; 85610; 85670; 85730; 87116; 93005; 93010; 93308; 93321; 93325; 93880; 95819; G0378; A9270-GY; J1650; J1953; J7030

== ENCOUNTER 2019-05-29 07:25 | Day surgery (SDC) | payer MEDICARE, OTHER ==
[2019-05-29] MEDS ORDERED: NACL 0.9% 500 ML 500 ML IV SCH (09:00)
[2019-05-29] MEDS ORDERED: HURRICAINE ONE 20% TOPICAL SPRAY MM (09:22)
[2019-05-29] MEDS ORDERED: VERSED IV ONE (09:30)
[2019-05-29] MEDS ORDERED: SUBLIMAZE IV ONE (09:30)
--- NOTE | 2019-05-29 10:29 | Short Stay Summary ---
Short Stay Documentation Date of service: 05/29/19 - History H&P: obtained from office - Allergies and Medications Current Medications: Allergies No Known Allergies Allergy (Verified 11/29/18 14:11) Home Medications Medication Instructions Recorded Confirmed Last Taken Type Lisinopril [Zestril TAB] 20 mg PO QDAY 06/05/15 05/29/19 05/28/19 History Aspirin 325 mg PO QDAY #30 tablet 06/08/15 05/29/19 05/28/19 Rx Ibuprofen [Motrin 800 MG tab] 800 mg PO Q8HR PRN 05/12/19 05/29/19 Unknown History Simvastatin 20 mg PO QHS 05/12/19 05/29/19 05/28/19 History amLODIPine [Norvasc] 10 mg PO QDAY 05/12/19 05/29/19 05/28/19 History Calcium Phosphate Trib/Vit D3 2 each PO DAILY 05/29/19 05/29/19 05/28/19 History [Calcium + Vitamin D3 Gummies] levETIRAcetam [Keppra] 500 mg PO BID 05/29/19 05/29/19 05/28/19 History Active Medications Benzocaine (Hurricaine One 20% Topical [place]) 3 spray MM PREOP NR Stop: 05/29/19 13:00 Sodium Chloride (Nacl 0.9% 500 Ml) 500 mls @ 50 mls/hr IV DIRECT SAY Last Admin: 05/29/19 09:40 Dose: 50 mls/hr Documented by: - Physical exam General appearance: no acute distress Integumentary: no rash HEENT: Atraumatic Lungs: Clear to auscultation Breasts: deferred Heart: Regular rate Gastrointestinal: normal Female Genitourinary: deferred Rectal Exam: deferred Extremities: no ischemia, pulses intact Neurological: Normal gait - Brief post op/procedure progress note Date of procedure: 05/29/19 Pre-op diagnosis: CVA Post-op diagnosis: same Procedure: WILLIE Anesthesia: MAC Findings: See report Surgeon: KELSEA JIMENEZ Estimated blood loss: none Pathology: none Condition: stable - Hospital course Hospital course: Uneventful - Disposition Condition at discharge: Good Disposition: DC-01 TO HOME OR SELFCARE Short Stay Discharge Plan Activity: advance as tolerated Weight Bearing Status: Weight Bear as Tolerated Diet: low fat, low cholesterol, low salt Follow up with: NORA GIVENS MD [Primary Care Provider] - 7 Days
[2019-05-29] MEDS ORDERED: HURRICAINE ONE 20% TOPICAL SPRAY MM NR (11:00)
[2019-05-29 13:16] VITALS: BP 142/83
== END 2019-05-29 12:30 | disposition home or self-care (01) ==
LOC: CATHLABREC 07:25 → EDSTATUS 08:30 → CATHLABREC 12:30
PROVIDERS: ATTEND Internal Medicine Cardiovascular Disease
DX: I08.1 Rheumatic disorders of both mitral and tricuspid valves (principal); I10 Essential (primary) hypertension; E78.5 Hyperlipidemia, unspecified; Z79.82 Long term (current) use of aspirin; Z79.899 Other long term (current) drug therapy; Z87.891 Personal history of nicotine dependence; Z91.19 Patient's noncompliance with other medical treatment and regimen; Z86.73 Personal history of transient ischemic attack (TIA), and cerebral infarction without residual deficits
CPT/HCPCS: 93312; 93320; 93325; J2250; J3010; J7040

== ENCOUNTER 2021-12-26 07:08 | Day surgery (SDC) | payer MEDICARE, OTHER ==
[2021-12-26 08:50] LABS: Basophils % (Auto) 0.4 % (0.0-1.8); Eosinophils # (Auto) 0.1 K/mm3 (0.0-0.4); Eosinophils % (Auto) 1.5 % (0.0-4.3); Hematocrit 38.9 % (30.3-42.9); Hemoglobin 12.8 gm/dl (10.1-14.3); Lymphocytes # (Auto) 2.4 K/mm3 (1.2-5.4); Lymphocytes % (Auto) 36.1 % (13.4-35.0); Mean Corpuscular HGB Conc 33 % (30-34); Mean Corpuscular Volume 86 fl (79-97); Monocytes # (Auto) 0.5 K/mm3 (0.0-0.8); Monocytes % (Auto) 7.1 % (0.0-7.3); Platelet Count 376 K/mm3 (140-440); Red Cell Distribution Width 12.7 % (13.2-15.2)
[2021-12-26 09:05] LABS: BUN/Creatinine Ratio 21; Blood Urea Nitrogen 19 mg/dL (7-17); Calcium 9.5 mg/dL (8.4-10.2); Hemolysis Index 12
[2021-12-26] MEDS: SODIUM CHLORIDE 0.9% 500 ML 500 ML IV SCH ×2 (09:19→11:45)
[2021-12-26] MEDS ORDERED: ASPIRIN 81 MG TAB CHEW PO SCH (10:00)
[2021-12-26] MEDS ORDERED: VERAPAMIL 5 MG/2 ML INJ ONE (10:58)
[2021-12-26] MEDS ORDERED: HEPARIN 10,000 UNITS/10 ML VIAL ONE (10:58)
[2021-12-26] MEDS: NITROGLYCERIN SYRINGE 3 ML ONE ×2 (11:45→11:51)
[2021-12-26] MEDS: HEPARIN/NS 5000 UNIT/500ML 1,000 ML IR ONE ×2 (11:45→11:52)
[2021-12-26] MEDS: fentaNYL 100 MCG/2 ML INJ ONE ×3 (11:46→11:59)
[2021-12-26] MEDS: MIDAZOLAM 2 MG/2 ML INJ ONE ×2 (11:46→11:48)
[2021-12-26] MEDS: LIDOCAINE (2%) 20 MG/1 ML VIAL 20 ML MDV INFILTRATI ONE ×2 (11:46→11:50)
[2021-12-26 12:12] LABS: INR 0.94 (0.87-1.13)
--- NOTE | 2021-12-26 12:26 | Cardiac Catherization Report ---
DATE OF SERVICE: 12/26/2021 REASON FOR PROCEDURE: Abnormal thallium stress test. PROCEDURES: 1. Left heart catheterization. 2. Selective left and right coronary angiography. 3. Left ventricular angiography. 4. Sedation time start 11:46, end 12:00. DESCRIPTION OF PROCEDURE: The patient was prepped and draped in a sterile fashion after informed consent. The right radial cath site was prepped and draped after negative Adrian's test. The right radial artery was entered using Seldinger technique followed by placement of a 6-English hydrophilic sheath. Routine radial cocktail was administered via the sheath. Selective left and right coronary angiography was performed using a #3.5 left Andrea and a #4 right Andrea. The pigtail catheter was used for left ventricular angiography. The catheters were then removed, sheath removed and hemostasis achieved using TR Band. The patient was returned to the postprocedure unit in stable condition. There were no complications. FINDINGS: HEMODYNAMICS: Left ventricular end-diastolic pressure was 26, following coronary angiography. Ascending aortic pressure was 123/65. There was no significant pressure gradient on pullback across the aortic valve. CORONARY ANGIOGRAPHY: Left main coronary artery was angiographically normal. The left anterior descending artery contained minimal irregularities in its proximal and mid segments. This vessel and its diagonal branches were otherwise angiographically normal. The circumflex artery also contained minimal irregularities in its mid AV groove segment. This vessel and its obtuse marginal branches were otherwise angiographically normal. The right coronary artery was dominant and also contained minimal irregularities in its proximal and mid segments. There was normal left ventricular systolic function, ejection fraction 60%. CONCLUSION: 1. Mild luminal irregularities as described above, otherwise angiographically normal coronary arteries. 2. Normal left ventricular systolic function, ejection fraction 60%. RECOMMENDATIONS: Risk factor modification and medical therapy. TID: [id number] RECEIPT: [id number] CA/MIGUEL ANGEL
[2021-12-26] MEDS ORDERED: POTASSIUM CHLORIDE ER 20 MEQ TAB PO SCH (12:53)
[2021-12-26] MEDS ORDERED: traMADol 50 MG TAB PO PRN (12:53)
--- NOTE | 2021-12-26 12:56 | Discharge Summary ---
Short Stay Discharge Plan Activity: advance as tolerated Weight Bearing Status: Full Weight Bearing Diet: low fat, low cholesterol, low salt Wound: keep clean and dry Special Instructions: no heavy lifting (3 days) Follow up with: JANET WRIGHT MD [Primary Care Provider] - 7 Days SHUKRI HUERTA MD [Staff Physician] - 7 Days
[2021-12-26] MEDS ORDERED: SODIUM CHLORIDE 0.9% 1000 ML 1,000 ML IV SCH (13:00)
[2021-12-26 15:41] VITALS: BP 113/55
--- NOTE | 2021-12-27 10:19 | Electrocardiograph Report ---
[facility] Test Date: 2021-12-26 Test Time: 08:55:21 Pat Name: AMENA RODRIGUEZ Department: Room: Gender: F Preservationist: JULI : 1960 Requested By: ELROY MONTEZ Order Number: [id number] Reading MD: Elroy Montez Measurements Intervals [place] Rate: 58 P: 45 VA: 162 QRS: 50 QRSD: 93 T: 45 QT: 481 QTc: 473 Interpretive Statements Sinus rhythm No previous ECG available for comparison Electronically Signed On 12-27-2021 10:18:34 EST by Elroy Montez
== END 2021-12-26 16:20 | disposition home or self-care (01) ==
LOC: CATHLABREC 07:08
PROVIDERS: ATTEND Internal Medicine Cardiovascular Disease
DX: R94.39 Abnormal result of other cardiovascular function study (principal); F17.210 Nicotine dependence, cigarettes, uncomplicated; I10 Essential (primary) hypertension; E78.5 Hyperlipidemia, unspecified; Z79.82 Long term (current) use of aspirin; Z98.890 Other specified postprocedural states; Z86.73 Personal history of transient ischemic attack (TIA), and cerebral infarction without residual deficits; Z79.899 Other long term (current) drug therapy
CPT/HCPCS: 36415; 80048; 85025; 85610; 93005; 93010; 93458; 99156; C1894; J1644; J1815; J2250; J3010; J3490; J7040; Q9967